=== PATIENT | female | born 1955 | race Caucasian/White ===

== ENCOUNTER 2019-05-24 13:26 | Observation (INO) | payer OTHER, SELFPAY ==
[2019-05-24] VITALS (11 sets, daily range): BP systolic 125–197; BP diastolic 61–95; PULSE 54–83; RESP 11–24; TEMP 36–36.3; O2SAT 93–98; BMI 32.8
--- NOTE | ~2019-05-24 | XR_ITS ---
EXAMINATION: XR chest 1V EXAM DATE: 05/24/2019 14:01 INDICATION: Dizziness. TECHNIQUE: Frontal and lateral projections of the chest obtained and reviewed. Comparison is made to prior examination from 11/27/2006. FINDINGS: Right lung granuloma. The lungs are otherwise clear. There are no pleural effusions. The cardiomediastinal silhouette is within normal limits. There is no pneumothorax suspected. The bone s and soft tissues are unremarkable. IMPRESSION: No acute cardiopulmonary findings. Reviewed, dictated and finalized at location A. INER HELPER
--- NOTE | ~2019-05-24 | US_ITS ---
EXAMINATION: US carotid duplex BI DATE: 05/25/2019 15:13 INDICATION: Cerebrovascular accident. TECHNIQUE: Grayscale, color Doppler, and pulsed Doppler images of the cervical carotid arteries were obtained. The degree of vessel stenosis is placed in one of the following categories: normal, <50%, 5 0-69%, >=70% but less than near-occlusion, near-occlusion, or total occlusion. Note that percent sten osis relative to normal distal artery lumen diameter is indirectly measured from velocity measurement s as described by Benito, et al. Radiology 2003; 229:340-346. COMPARISON: None. FINDINGS: RIGHT: The right common carotid artery (CCA) peak systolic velocity (PSV) is 95 cm/s. The right internal car otid artery (ICA) PSV is 119 cm/s. The right ICA end-diastolic velocity (EDV) is 24 cm/s. The right I CA/CCA PSV ratio is 1.3. Grayscale and color Doppler images yield an estimate of <50% diameter reduct ion from plaque in the ICA. There is antegrade flow in the right vertebral artery. LEFT: The left CCA PSV is 111 cm/s. The left ICA PSV is 230 cm/s. The left ICA EDV is 52 cm/s. The left ICA /CCA PSV ratio is 2.1. Grayscale and color Doppler images yield an estimate of <50% diameter reductio n from plaque in the ICA. There is antegrade flow in the left vertebral artery. IMPRESSION: 1. <50% stenosis in the right internal carotid artery. 2. <50% stenosis in the left internal carotid artery. Reviewed, dictated and finalized at location A. LESOFT DEVELOPER
--- NOTE | ~2019-05-24 | CT_ITS ---
EXAMINATION: CT brain wo con DATE: 05/24/2019 14:04 INDICATION: Dizziness. TECHNIQUE: Computed tomography (CT) of the head was performed without intravenous contrast. The mA wa s adjusted according to patient size. Iterative reconstruction technique was employed. The dose-lengt h product was 605.33 mGy-cm. COMPARISON: Head CT 10/24/2009 FINDINGS: There is an old lacunar infarct in right caudate nucleus. There are scattered areas of low attenuation in the cerebral white matter, which is within normal limits for the patient's age. There is an old infarct in posterior limb right internal capsule. There are likely changes of right ocular lens replacement surgery. 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 There is mild mucosal thickening in the paranasal sinuses. The mastoid air cells are normal. IMPRESSION: 1. 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 Reviewed, dictated and finalized at location A. ANOLOGY TEACHER
--- NOTE | ~2019-05-24 | CT_ITS ---
EXAMINATION: CTA brain DATE: 05/27/2019 15:12 INDICATION: Cerebrovascular accident. TECHNIQUE: Computed tomographic angiography (CTA) of the head was performed without and with 100 mL O mnipaque-350 intravenous contrast. Automated exposure control and iterative reconstruction technique were employed. The dose-length product was 994.54 mGy-cm. Maximum intensity projection 3D reconstruc tions were created. Volume-rendered 3D reconstructions of the intracranial arteries were created by rey sandy technologist on a separate workstation. COMPARISON: Head CT 05/24/2019 FINDINGS: There are old infarcts in the posterior limb right internal capsule and right caudate nucle us. There is no intracranial hemorrhage, acute infarction, or abnormal intracranial mass lesion. The ventricles are normal in size. The paranasal sinuses are clear. The mastoid air cells are normal. The re are likely changes of ocular lens replacement surgeries. Left ocular globe is small with dystrophi c calcifications. Right vertebral artery is dominant. There is no significant stenosis of basilar art eliana or the posterior cerebral arteries. There is no significant stenosis of the intracranial internal carotid arteries or anterior or middle cerebral arteries. Anterior communicating artery is normal. T here is no aneurysm. The posterior communicating arteries are normal. IMPRESSION: 1. Old infarcts involving right caudate nucleus and posterior limb right internal capsule. 2. No aneurysm or significant intracranial arterial stenosis. Reviewed, dictated and finalized at location A. BLER IMPRESSION: 1. Old infarcts involving right caudate nucleus and posterior limb right staff internist office based only al capsule. 2. No aneurysm or significant intracranial arterial stenosis.
--- NOTE | 2019-05-24 13:24 | ED.DIZZY ---
HPI - Dizziness General Chief Complaint: Dizziness Stated Complaint: dizziness Source: patient Mode of arrival: ambulatory Limitations: no limitations History of Present Illness HPI Narrative: A 63 y/o female pt presents to the ED, via EMS, with c/o intermittent dizziness that began Thursday night (3 days ago). Pt states she feels off balance, pulling to the right when walking but lying still alleviates her Sx. Pt denies any worsening of Sx with head movement and denies N/V, SOB, CP and numbness or tingling in extremities. MD elicited complaint: dizziness and difficulty walking (pulls to the right) Onset (ago): day(s) (3) Timing: intermittent Description: off-balance and other (dizziness) Relieving factors: lying down Associated symptoms: other (pulls to the right when walking) Related Data Allergies Allergy/AdvReac Type Severity Reaction Status Date / Time poison mustapha extract Allergy Mild Rash Verified 05/24/19 13:32 BURLAP Allergy Mild Rash Uncoded 05/24/19 13:32 Review of Systems Review of Systems: All systems reviewed & are unremarkable except as noted in HPI and below Cardiovascular: Cardiovascular: Denies chest pain Respiratory: Respiratory: Denies dyspnea Gastrointestinal: Gastrointestinal: Denies nausea and Denies vomiting Musculoskeletal: Musculoskeletal: Denies numbness and Denies tingling Neurologic: Reports abnormal gait (pulls to the right), Reports dizziness and Denies other (worsening of dizziness with head movement) [facility] Past Medical History Medical History (Updated 05/24/19 @ 17:27 by Espinoza Smith DO) Ankle fracture, right Diabetes mellitus Hiatal hernia Hypertension Left cataract Surgical History Surgical History (Updated 05/24/19 @ 16:07 by Rk HollidayActual Experience) History of left cataract extraction History of tonsillectomy History of tubal ligation Social History Social History Smoking status: Never smoker Alcohol intake: never Gender identity (if verbalized by the patient): Female Exam Narrative: Exam Narrative: APPEARANCE: No acute distress, nontoxic, resting in bed HEENT: Normocephalic, atraumatic, OMM, TMs clear bilaterally EYES: PERRL, EOMI NECK: Supple, nontender, full range of motion without pain, no meningismus RESPIRATORY: No respiratory distress, clear to auscultation bilaterally with no rhonchi wheezing or rales CARDIOVASCULAR: RRR s murmur ABDOMINAL: Soft, nontender, nondistended MUSCULOSKELETAL: Moves all extremities. No clubbing, cyanosis or edema. NEURO: A and O ?3, following commands, speech normal, cranial nerves II through XII grossly intact,muscle strength 5 out of 5 bilateral upper and lower extremities SKIN:: Warm, dry. Normal Color PSYCHIATRIC: Normal affect/mood Course Course Emergency Course: Patient had road test. Continues a list of the right. States it feels like she has been shift to the right Discussed with YESSI Chang presentation work-up. Agrees with admission at this time Discussed with patient and family results of workup and diagnosis. Discussed need for admission. Patient and family understand and agree to current treatment plan Consultations Consultation #1: Discussed case with Dr. Garrison, Neurologist. Agrees to consult and recommends administering Aspirin x 1. Date: 05/24/19 Time: 17:05 Vital Signs Vital signs: Vital Signs Temperature 97.4 F L 05/24/19 13:20 Pulse Rate 54 L 05/24/19 13:20 Respiratory Rate 12 05/24/19 13:20 Blood Pressure 185/61 H 05/24/19 13:20 Pulse Oximetry 96 05/24/19 13:20 Temperature 97.4 F L 05/24/19 13:20 Pulse Rate 56 L 05/24/19 16:31 Respiratory Rate 15 05/24/19 16:31 Blood Pressure 162/82 H 05/24/19 16:31 Pulse Oximetry 93 05/24/19 16:01 MDM - Dizziness Lab Data Result diagrams: 05/24/19 13:39 05/24/19 13:39 Labs: Lab Results 05/24/19 05/24/19 05/24/19 Range/Units 13:39
--- NOTE | 2019-05-24 13:26 | ECG_ITS ---
Measurements Intervals [place] Rate: 51 P: 28 FL: 138 QRS: 0 QRSD: 96 T: 45 QT: 440 QTc: 408 Interpretive Statements SINUS BRADYCARDIA BASELINE ARTIFACT- I, II, III, AVR BORDERLINE ECG Electronically Signed On 05-24-2019 14:39:04 [employer]ORER [employer] by Kyaw Joy D.O.
[2019-05-24] MEDS: MECLIZINE HCL 25 MG TABLET PO (13:33)
[2019-05-24 13:45] LABS: Basophils Absolute Auto 0.1 K/mm3 (0.0-0.1); Basophils Percent Auto 0.8 % (0.2-1.2); Eosinophils Absolute Auto 0.3 K/mm3 (0-0.3); Eosinophils Percent Auto 3.1 % (0-4.4); Hematocrit 40.4 % (37.0-47.0); Hemoglobin 13.5 g/dL (12.0-15.0); Immature Granulocyte Absolute 0.04 K/mm3 (0.00-0.031); Immature Granulocyte Percent A 0.4 % (0-0.5); Lymphocytes Absolute Auto 3.03 K/mm3 (0.9-3.2); Lymphocytes Percent Auto 28.1 % (18.3-44.2); Mean Corpuscular HGB Conc 33.4 g/dl (32-36); Mean Corpuscular Hemoglobin 29.6 pg (26-34); Mean Corpuscular Volume 88.6 fl (80-100); Mean Platelet Volume 9.6 fl (7.4-10.4); Monocytes Absolute Auto 0.7 K/mm3 (0.1-0.6); Monocytes Percent Auto 6.3 % (2.6-8.5); Neutrophils Absolute Auto 6.6 K/mm3 (1.3-6.7); Neutrophils Percent Auto 61.3 % (45.5-73.1); Platelet Count Result 325 k/mm3 (150-375); Red Blood Count 4.56 M/mm3 (4.2-5.4); Red Cell Distribution Width 12.2 % (11.5-14.5); White Blood Count 10.8 K/mm3 (4.5-10.0)
[2019-05-24 13:55] LABS: INR 1.2; Partial Thromboplastin Time 22.1 SECONDS (22.3-36.8); Prothrombin Time 14.6 Seconds (11.1-14.7)
[2019-05-24 14:12] LABS: Alanine Aminotransferase 22 U/L (4-35); Albumin Level 4.4 g/dL (3.5-5.1); Alkaline Phosphatase 82 U/L (38-126); Aspartate Amino Transferase 29 U/L (14-36); Bilirubin,Total 0.6 mg/dL (0.2-1.3); Blood Urea Nitrogen 12 mg/dL (7-17); Calcium 9.2 mg/dL (8.4-10.2); Carbon Dioxide 22 mmol/L (22-30); Chloride 100 mmol/L (98-107); Estimated CRCL calculation 96 ml/min; Estimated Glomerular Filt Rate > 60; Glucose 251 mg/dL (65-105); Potassium 4.2 mmol/L (3.4-5.0); Sodium 136 mmol/L (137-145)
[2019-05-24 14:14] LABS: Troponin I < 0.012 ng/mL (0.000-0.034)
[2019-05-24 14:56] LABS: Add Urine Microscopic? YES; Appearance Urine Clear (Clear); Bilirubin Urine Negative (Negative); Blood Urine Negative (Negative); Color Urine Yellow (Yellow); Glucose Urine UA Negative (Negative); Hyaline Casts Urine 15-19 /lpf; Ketones Urine Negative (Negative); Leukocyte Esterase Ur Trace LEU/UL (Negative); Mucus Urine Few /lpf; Nitrate Urine Negative (Negative); Protein Urine Negative (Negative); RBC Urine 0-2 /hpf (0-2); Specific Grav Ur 1.015 (1.001-1.035); Squamous Epithelial Cell Urine Occasional /hpf (Few); Urobilinogen Urine Negative mg/dL (<2.0); WBC Urine 0-3 /hpf
[2019-05-24] MEDS: ASPIRIN 81 MG CHEWABLE TABLET 324 MG PO (17:35)
[2019-05-24] MEDS: carvediloL 12.5 MG TABLET PO (18:24)
--- NOTE | 2019-05-24 18:57 | ADMGEN ---
This patient, Onelia Ramos, was admitted to Medical Room 253-01. Patient/family oriented to hospital policies and general routines including ID bracelet, bed and alarms, visiting hours, pain management, procedures, bathroom and other care routines, personal items, smoking policy, room service/diet, and visiting hours. Valuables list has been completed. Information on how to activate the Rapid Response Team has been discussed. Patient/Family are encouraged to report perceived risks to care and to ask questions if they do not understand what they are told or what they should do.
[2019-05-24 20:48] LABS: Troponin I < 0.012 ng/mL (0.000-0.034)
[2019-05-25] VITALS (9 sets, daily range): BP systolic 158–183; BP diastolic 68–71; PULSE 56–74; RESP 16–20; TEMP 36.3–36.6; O2SAT 90–99
[2019-05-25 00:08] LABS: Troponin I < 0.012 ng/mL (0.000-0.034)
[2019-05-25 05:29] LABS: Basophils Absolute Auto 0.1 K/mm3 (0.0-0.1); Basophils Percent Auto 0.6 % (0.2-1.2); Eosinophils Absolute Auto 0.3 K/mm3 (0-0.3); Eosinophils Percent Auto 2.5 % (0-4.4); Hematocrit 38.4 % (37.0-47.0); Hemoglobin 12.6 g/dL (12.0-15.0); Immature Granulocyte Absolute 0.04 K/mm3 (0.00-0.031); Immature Granulocyte Percent A 0.3 % (0-0.5); Lymphocytes Percent Auto 38.8 % (18.3-44.2); Mean Corpuscular HGB Conc 32.8 g/dl (32-36); Mean Corpuscular Hemoglobin 29.4 pg (26-34); Mean Corpuscular Volume 89.5 fl (80-100); Mean Platelet Volume 9.6 fl (7.4-10.4); Monocytes Absolute Auto 1.1 K/mm3 (0.1-0.6); Monocytes Percent Auto 8.8 % (2.6-8.5); Neutrophils Absolute Auto 5.9 K/mm3 (1.3-6.7); Platelet Count Result 292 k/mm3 (150-375); Red Blood Count 4.29 M/mm3 (4.2-5.4); Red Cell Distribution Width 12.3 % (11.5-14.5); White Blood Count 12.1 K/mm3 (4.5-10.0)
[2019-05-25 06:13] LABS: Blood Urea Nitrogen 19 mg/dL (7-17); Calcium 8.9 mg/dL (8.4-10.2); Carbon Dioxide 31 mmol/L (22-30); Chloride 99 mmol/L (98-107); Estimated CRCL calculation 70 ml/min; Estimated Glomerular Filt Rate > 60; Glucose 120 mg/dL (65-105); Potassium 3.8 mmol/L (3.4-5.0); Sodium 138 mmol/L (137-145)
--- NOTE | 2019-05-25 08:19 | ECHO_ITS ---
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 Summary 1. Left ventricular chamber dimension is normal. 2. Left ventricular systolic function is normal, estimated at 60-65%. 3. There is no increased left ventricular wall thickness. 4. Left ventricular septal wall motion is normal. 5. The left ventricular diastolic function is grade I diastolic dysfunction. 6. Left atrial chamber dimension is mildly enlarged. 7. There is mild aortic valve calcification. 8. There is mild mitral valve regurgitation. 9. There is mild tricuspid valve regurgitation. 10. There is mild pulmonic regurgitation. 11. Intact interatrial septum visualized by agitated saline imaging. Left Ventricle Left ventricular chamber dimension is normal. Left ventricular systolic function is normal, estimated at 60-65%. There is no increased left ventricular wall thickness. Left ventricular septal wall motion is normal. The left ventricular diastolic function is grade I diastolic dysfunction. Right Ventricle Right ventricular chamber dimension is normal. Right ventricular systolic function is normal. Left Atria Left atrial chamber dimension is mildly enlarged. Right Atria Right atrial chamber dimension is normal. Atrial Septum Intact interatrial septum visualized by agitated saline imaging. Aortic Valve The aortic valve is trileaflet. There is no aortic valve stenosis. There is trace aortic valve regurgitation. There is mild aortic valve calcification. Pulmonic Valve The pulmonic valve is normal. There is no pulmonic valve stenosis. There is mild pulmonic regurgitation. Mitral Valve The mitral valve has normal leaflets. There is no mitral valve stenosis. There is mild mitral valve regurgitation. Tricuspid Valve The tricuspid valve leaflets are normal. There is no significant tricuspid valve stenosis. There is mild tricuspid valve regurgitation. Pericardium/Pleural The pericardium appears normal. There is no pericardial effusion. Inferior Vena Cava Normal inferior vena cava with >50% collapse upon inspiration consistent with normal right atrial pressure, 5 mmHg. Aorta The aortic root size at the sinus of Valsalva is normal. Left Ventricular Outflow Tract Name Value Normal LVOT 2D LVOT Diameter 1.9 cm LVOT Doppler LVOT Peak Gradient 4 mmHg LVOT Mean Gradient 2 mmHg LVOT VTI 19 cm
[2019-05-25] MEDS: ASPIRIN 81 MG CHEWABLE TABLET 324 MG PO (08:46)
[2019-05-25 09:10] LABS: Glucose Point of Care 159 (65-105)
--- NOTE | 2019-05-25 11:50 | PCCCNOTE ---
On 05/25/19, the student, [Kim Clark ], provided care and completed [facility] documentation on this patient. I have reviewed the student's documentation and agree with the findings.
[2019-05-25 12:16] LABS: Glucose Point of Care 168 (65-105)
--- NOTE | 2019-05-25 15:14 | PCPTNOTE ---
The patient treatment was not able to be completed on 05/25/19 due to out of room at a test. Will attempted to perform therapy evaluation on 05/26/19.
--- NOTE | 2019-05-25 15:50 | CONS_ITS ---
DATE OF CONSULTATION: HISTORY OF PRESENT ILLNESS: This 63 years old right-handed female has been admitted to [facility] through the emergency room via EMS for the complaint of intermittent dizziness since Thursday of 3 days duration, described it as off-balance, pulling to the right when walking, but lying still alleviates her symptoms. Patient denied worsening of symptomatology with head movements and also gave no history of nausea, vomiting, shortness of breath, chest pain, numbness or tingling in the extremities. ALLERGIES: AT THE TIME OF ADMISSION TO THE HOSPITAL, PER THE DOCUMENTATION, SHE IS ALLERGIC TO POISON LILIAN EXTRACT, BURLAP. SHE HAS NO HISTORY OF ANY OTHER GENERAL SYMPTOMATOLOGY. PAST MEDICAL HISTORY: She has ongoing history of, in the past, diabetes mellitus, hiatal hernia, hypotension, history of right ankle fracture and history of left cataract extraction, in addition to tonsillectomy and tubal ligation. PHYSICAL EXAMINATION: GENERAL: Revealed her to be awake, alert, cooperative, in no obvious acute distress. HEENT: Head normocephalic with no cranial bruit. Ears, nose, throat examination normal. NECK: Supple with no cervical bruit. No thyromegaly. No lymphadenopathy. HEART: Regular with no murmur. LUNGS: Clear to auscultation. ABDOMEN: Soft with no organomegaly. NEUROLOGICAL: She was awake, alert, oriented x3. Speech not dysphasic, not dysarthric, not dysphonic. Pupils round, regular. Long of vision full. Extraocular movement full. Face symmetrical. Tongue midline. Motor examination revealed her to have no drift of 1 side or other side. Tone normal. Reflexes symmetrical. Plantars downgoing. LABORATORY DATA: Further investigation included a CBC with WBC 10.8, hemoglobin 13.5, platelets 325. Basic metabolic panel, sodium 136, potassium 4.2, chloride 100, CO2 of 22, BUN 12, creatinine 0.5, blood sugar 251. IMAGING: Chest x-ray negative. CT of the head documented the right caudate nucleus and posterior limb right internal capsule infarct. ASSESSMENT AND PLAN: The patient was advised that she should continue on aspirin 81 mg daily and carvedilol 12.5 mg twice a day along with the glimepiride 4 mg daily, ezetimibe 10 mg daily, and metformin 2000 mg daily. She will be followed in the office in 6 weeks. BOZENA ALVAREZ M.D. SUPPLIER MANAGER SUPPLIER MANAGER D I MT: Sabrina
--- NOTE | 2019-05-25 16:51 | PM.IMHP ---
H&P: HPI History of Present Illness Chief complaint: Gait instability suspect CVA Narrative: Onelia Ramos is a 63 year old female With his history of previous stroke diabetes and hypertension presented emergency department with a complaint feeling dizzy then see ambulates she drift to the right side and symptoms resolved when she is lying down however see does not any associated symptoms chest pain shortness of palpitation blurry vision fever or chills, currently patient is sitting in the chair states he did work with physical therapy and did not have any symptoms of drifting on the right CC denies any weakness in upper and lower extremities Review of Systems Review of Systems: All systems reviewed & are unremarkable except as noted in HPI and below PMFSH Past Medical History Medical History (Updated 05/25/19 @ 16:55 by Dante Tello MD) Ankle fracture, right Diabetes mellitus Hiatal hernia Hypertension Left cataract Surgical History Surgical History (Updated 05/24/19 @ 16:07 by Rk Naranjo [employer]) History of left cataract extraction History of tonsillectomy History of tubal ligation Family History Family History (Updated 05/24/19 @ 18:59 by Dawn Martínez RN) Mother Diabetes mellitus Hypertension Social History Social History Smoking status: Never smoker Alcohol intake: never Substance use: never Substance use type: does not use Gender identity (if verbalized by the patient): Female Spiritual care concerns: No Agree to blood products: Yes Meds Home Medications and Allergies Home Medications Medication Instructions Recorded Confirmed Type aspirin 81 mg PO HS 05/24/19 05/24/19 History carvedilol 12.5 mg PO BID 05/24/19 05/24/19 History ezetimibe 10 mg PO DAILY 05/24/19 05/24/19 History glimepiride 4 mg PO DAILY 05/24/19 05/24/19 History metformin 2,000 mg PO DAILY 05/24/19 05/24/19 History Allergies Allergy/AdvReac Type Severity Reaction Status Date / Time poison mustapha extract Allergy Mild Rash Verified 05/24/19 13:32 BURLAP Allergy Mild Rash Uncoded 05/24/19 13:32 Vital Signs Vital Signs - 24 hr 05/24/19 17:01 05/24/19 17:40 05/24/19 18:16 Temperature Pulse Rate 64 75 83 Respiratory Rate 11 L 24 H 16 Blood Pressure 184/68 H 197/95 H 176/89 H Pulse Oximetry 96 96 95 05/24/19 18:24 05/24/19 18:58 05/24/19 20:00 Temperature 96.8 F L Pulse Rate 78 67 69 Respiratory Rate 18 Blood Pressure 187/71 H Pulse Oximetry 98 05/24/19 22:00 05/25/19 00:00 05/25/19 04:00 Temperature 97.2 F L Pulse Rate 69 63 56 L Respiratory Rate 20 Blood Pressure 143/67 H Pulse Oximetry 94 05/25/19 06:00 05/25/19 08:00 05/25/19 12:00 Temperature 97.3 F L Pulse Rate 62 62 65 Respiratory Rate 18 18 Blood Pressure 158/69 H Pulse Oximetry 92 92 05/25/19 14:00 05/25/19 16:00 Temperature 97.4 F L Pulse Rate 74 67 Respiratory Rate 16 Blood Pressure 182/71 H Pulse Oximetry 99 Exam Narrative: Exam Narrative: Elderly moderately obese Const: General: comfortable and no acute distress HENMT: General nose exam: Normal nares present Mouth: Yes moist mucous membranes Eyes: General: appearance normal, both eyes and all related structures Sclera: sclerae normal Neck: Neck: supple Resp: Effort & Inspection: normal respiratory effort Auscultation: clear to auscultation bilaterally Cardio: Rate: regular rate Rhythm: regular rhythm GI: GI Palp: Yes Soft to palpation Skin: General skin exam: normal color and no rashes or lesions noted Neuro: Speech: normal speech Sensory Exam: normal sensation Other: Bilaterally upper and lower extremity power and strength 5/5 and symmetrical Extrem: General: normal to inspection Psych: Affect: Anxious affect present H&P: Results Labs Labs: Short CBC 05/24/19 05/25/19 Range/Units 13:39 04:59 WBC 10.8 H 12.1 H (4.5-1
[2019-05-25 17:44] LABS: Glucose Point of Care 155 (65-105)
[2019-05-25 21:28] LABS: Glucose Point of Care 249 (65-105)
[2019-05-26] VITALS (9 sets, daily range): BP systolic 149–178; BP diastolic 54–67; PULSE 60–82; RESP 16–20; TEMP 36.1–36.7; O2SAT 93–96
[2019-05-26 06:21] LABS: Hematocrit 38.9 % (37.0-47.0); Hemoglobin 13.1 g/dL (12.0-15.0); Mean Corpuscular HGB Conc 33.7 g/dl (32-36); Mean Corpuscular Hemoglobin 29.6 pg (26-34); Mean Platelet Volume 9.5 fl (7.4-10.4); Platelet Count Result 284 k/mm3 (150-375); Red Blood Count 4.42 M/mm3 (4.2-5.4); Red Cell Distribution Width 12.2 % (11.5-14.5); White Blood Count 9.1 K/mm3 (4.5-10.0)
[2019-05-26 06:32] LABS: Blood Urea Nitrogen 15 mg/dL (7-17); Carbon Dioxide 27 mmol/L (22-30); Chloride 97 mmol/L (98-107); Estimated CRCL calculation 81 ml/min; Estimated Glomerular Filt Rate > 60; Glucose 161 mg/dL (65-105); Potassium 3.5 mmol/L (3.4-5.0); Sodium 135 mmol/L (137-145)
[2019-05-26 07:48] LABS: Glucose Point of Care 163 (65-105)
[2019-05-26] MEDS: carvediloL 12.5 MG TABLET PO ×2 (08:37→16:54)
[2019-05-26] MEDS: EZETIMIBE 10 MG TABLET PO (08:37)
[2019-05-26] MEDS: GLIMEPIRIDE 2 MG TABLET 4 MG PO (08:37)
[2019-05-26] MEDS: ASPIRIN 81 MG CHEWABLE TABLET 324 MG PO (08:38)
[2019-05-26 09:35] LABS: Hematocrit 41.4 % (37.0-47.0); Hemoglobin 13.7 g/dL (12.0-15.0); Mean Corpuscular HGB Conc 33.1 g/dl (32-36); Mean Corpuscular Hemoglobin 29.5 pg (26-34); Mean Corpuscular Volume 89.2 fl (80-100); Mean Platelet Volume 9.7 fl (7.4-10.4); Platelet Count Result 309 k/mm3 (150-375); Red Blood Count 4.64 M/mm3 (4.2-5.4); Red Cell Distribution Width 12.2 % (11.5-14.5); White Blood Count 9.5 K/mm3 (4.5-10.0)
[2019-05-26] MEDS: metFORMIN HCL 500 MG TABLET 2000 MG PO ×2 (09:41)
[2019-05-26 09:48] LABS: Magnesium 1.5 mg/dL (1.6-2.3)
[2019-05-26 09:50] LABS: Albumin Level 4.5 g/dL (3.5-5.1); Alkaline Phosphatase 70 U/L (38-126); Aspartate Amino Transferase 41 U/L (14-36); Bilirubin,Total 0.6 mg/dL (0.2-1.3); Blood Urea Nitrogen 15 mg/dL (7-17); Carbon Dioxide 24 mmol/L (22-30); Chloride 95 mmol/L (98-107); Estimated CRCL calculation 95 ml/min; Estimated Glomerular Filt Rate > 60; Glucose 316 mg/dL (65-105); Sodium 136 mmol/L (137-145)
[2019-05-26 09:58] LABS: Alanine Aminotransferase 34 U/L (4-35)
--- NOTE | 2019-05-26 12:11 | PM.IMPN ---
Progress Note: A&P Assessment and Plan (1) Gait instability: Code(s): R26.81 - Unsteadiness on feet Status: Acute Assessment and Plan: 05/26/19 12:11Onelia Ramos is a 63 year old female With his history of previous stroke diabetes and hypertension presented emergency department with a complaint feeling dizzy then see ambulates she drift to the right side and symptoms resolved when she is lying down however see does not any associated symptoms chest pain shortness of palpitation blurry vision fever or chills, currently patient is sitting in the chair states he did work with physical therapy and did not have any symptoms of drifting on the right CC denies any weakness in upper and lower extremities, to further evaluate patient had a CT scan of the head which essentially negative and showed the patient had previous stroke, her carotid ultrasound as well cardiac echo essentially normal, patient seen by neurologist recommending continue present management with PT OT, will benefit from acute rehab, Today patien stats she did work with PT and still feels drifiting of right side and feels uneasy about ambulating, her [place] US, and cardiac echo are normal ct of head did not show any acute injury but has old infarct, unable to do MRI because of metal in her left eye, will continue to monitor, continue PT OT, will repeat CTA of head tomorrow to further evaluate and patient will be seen by neurologist. (2) Dizziness: Code(s): R42 - Dizziness and giddiness Status: Acute Assessment and Plan: Etiology uncertain plan is above (3) Hypertension: Code(s): I10 - Essential (primary) hypertension Status: Acute Assessment and Plan: Will continue home regimen and monitor (4) Diabetes mellitus: Code(s): E11.9 - Type 2 diabetes mellitus without complications Status: Acute Assessment and Plan: Will continue home regimen and monitor Subjective Date/time seen: 05/26/19 12:11Onelia Ramos is a 63 year old female With his history of previous stroke diabetes and hypertension presented emergency department with a complaint feeling dizzy then see ambulates she drift to the right side and symptoms resolved when she is lying down however see does not any associated symptoms chest pain shortness of palpitation blurry vision fever or chills, currently patient is sitting in the chair states he did work with physical therapy and did not have any symptoms of drifting on the right CC denies any weakness in upper and lower extremities, to further evaluate patient had a CT scan of the head which essentially negative and showed the patient had previous stroke, her carotid ultrasound as well cardiac echo essentially normal, patient seen by neurologist recommending continue present management with PT OT, will benefit from acute rehab, Today patien stats she did work with PT and still feels drifiting of right side and feels uneasy about ambulating, her [place] US, and cardiac echo are normal ct of head did not show any acute injury but has old infarct, unable to do MRI because of metal in her left eye, will continue to monitor, continue PT OT, will repeat CTA of head tomorrow to further evaluate and patient will be seen by neurologist. Review of Systems Review of Systems: All systems reviewed & are unremarkable except as noted in HPI and below Exam Narrative: Exam Narrative: Elderly moderately obese Const: General: comfortable and no acute distress HENMT: General nose exam: Normal nares present Mouth: Yes moist mucous membranes Eyes: General: appearance normal, both eyes and all related structures Sclera: sclerae normal Neck: Neck: supple Resp: Effort & Inspection: normal respiratory effort Auscultation: clear to auscultation bilaterally Cardio: Rate: regular rate Rhythm: regular rhythm Skin: General skin exam: normal color and no rashes or lesions noted Neuro: Speech: normal speech Sensory Exam:
[2019-05-26 12:12] LABS: Glucose Point of Care 239 (65-105)
[2019-05-26 17:22] LABS: Glucose Point of Care 156 (65-105)
[2019-05-26] MEDS: ASPIRIN 81 MG ENTERIC TABLET PO (20:53)
[2019-05-27] VITALS (9 sets, daily range): BP systolic 167–176; BP diastolic 56–71; PULSE 54–86; RESP 15–16; TEMP 35.9–36.9; O2SAT 96–98
[2019-05-27 06:06] LABS: Glucose Point of Care 153 (65-105)
--- NOTE | 2019-05-27 08:00 | PC.NURSE ---
Nystagmus noted to right eye.
[2019-05-27 08:28] LABS: Hematocrit 41.5 % (37.0-47.0); Mean Corpuscular HGB Conc 33.7 g/dl (32-36); Mean Corpuscular Hemoglobin 30.2 pg (26-34); Mean Corpuscular Volume 89.4 fl (80-100); Mean Platelet Volume 9.5 fl (7.4-10.4); Platelet Count Result 304 k/mm3 (150-375); Red Blood Count 4.64 M/mm3 (4.2-5.4); Red Cell Distribution Width 12.2 % (11.5-14.5); White Blood Count 10.1 K/mm3 (4.5-10.0)
[2019-05-27 08:41] LABS: Blood Urea Nitrogen 14 mg/dL (7-17); Calcium 9.5 mg/dL (8.4-10.2); Carbon Dioxide 26 mmol/L (22-30); Chloride 98 mmol/L (98-107); Estimated CRCL calculation 95 ml/min; Estimated Glomerular Filt Rate > 60; Glucose 166 mg/dL (65-105); Magnesium 1.7 mg/dL (1.6-2.3); Potassium 4.3 mmol/L (3.4-5.0); Sodium 138 mmol/L (137-145)
[2019-05-27 08:47] LABS: Glucose Point of Care 172 (65-105)
[2019-05-27] MEDS: GLIMEPIRIDE 2 MG TABLET 4 MG PO (08:57)
[2019-05-27] MEDS: EZETIMIBE 10 MG TABLET PO (08:57)
[2019-05-27] MEDS: carvediloL 12.5 MG TABLET PO ×2 (09:01→16:01)
[2019-05-27] MEDS: metFORMIN HCL 500 MG TABLET 2000 MG PO (09:20)
--- NOTE | 2019-05-27 12:00 | PC.NURSE ---
Nystagmus noted to right eye
--- NOTE | 2019-05-27 13:00 | PC.NURSE ---
Spoke with Dr. Garrison about nystagmus in right eye. He states he is aware of it.
--- NOTE | 2019-05-27 13:11 | WPDNEUROPN ---
Progress Note: A&P Assessment and Plan (1) Hypertension: Code(s): I10 - Essential (primary) hypertension Status: Acute (2) Diabetes mellitus: Code(s): E11.9 - Type 2 diabetes mellitus without complications Status: Acute (3) Gait instability: Code(s): R26.81 - Unsteadiness on feet Status: Acute (4) Dizziness: Code(s): R42 - Dizziness and giddiness Status: Acute Additional Plan question new stroke brainstem or cerebellar cannot have mri will get new ct scan Review of Systems Review of Systems: All systems reviewed & are unremarkable except as noted in HPI and below Constitutional: Constitutional: Reports no additional constitutional complaints Neurologic: Reports abnormal gait, Reports dizziness, Reports frequent falls, Reports lack of coordination and Reports focal weakness Exam HENMT: Head: normocephalic Ears: hearing grossly normal bilaterally Face and sinus: face symmetric Eyes: Visual Yanez: normal visual yanez by confrontation Pupils: Equal, round and reactive pupils present EOM: EOMs intact bilaterally Neck: Neck: full ROM Resp: Effort & Inspection: normal respiratory effort Auscultation: clear to auscultation bilaterally Cardio: Rate: regular rate Rhythm: regular rhythm Neuro: General: patient oriented x3 and gait normal (abnormal with tendency to go to right) Cranial nerves: Yes Equal, round and reactive pupils present, Yes Bilaterally intact EOM present, Yes Nystagmus not present, Yes Normal facial strength present, Yes Normal hearing present, Yes Ability to bilaterally rotate head present and Yes Ability to bilaterally elevate shoulders present Speech: normal speech Gait exam (Neuro): Staggering gait present and Wide-based gait present Psych: Appearance: grossly normal Objective Data Vital Signs Vital Signs: Vital Signs - 24 hr 05/26/19 14:00 05/26/19 16:00 05/26/19 20:00 Temperature 36.2 C L Pulse Rate 80 82 69 Respiratory Rate 16 Blood Pressure 149/58 H Pulse Oximetry 93 05/26/19 22:00 05/27/19 00:00 05/27/19 04:00 Temperature 36.7 C Pulse Rate 60 61 68 Respiratory Rate 16 Blood Pressure 167/54 H Pulse Oximetry 96 05/27/19 06:00 05/27/19 08:00 05/27/19 09:01 Temperature 35.9 C L Pulse Rate 54 L 74 76 Respiratory Rate 16 Blood Pressure 176/56 H Pulse Oximetry 96 05/27/19 12:00 Temperature Pulse Rate 86 Respiratory Rate Blood Pressure Pulse Oximetry Intake/Output Intake/Output: Intake & Output 05/24/19 05/25/19 05/26/19 05/27/19 23:59 23:59 23:59 23:59 Intake Total 240 1960 1430 440 Output Total 1400 800 600 Balance 240 560 630 -160 Meds/Results Medications: Active Medications Generic Name Dose Route Start Last Admin Trade Name Geronimo PRN Reason Stop Dose Admin Aspirin 81 mg 05/26/19 21:00 05/26/19 20:53 Aspirin Ec PO 81 mg HS THADDEUS Administration Carvedilol 12.5 mg 05/26/19 09:00 05/27/19 09:01 Coreg PO 12.5 mg BID THADDEUS Administration Ezetimibe 10 mg 05/26/19 09:00 05/27/19 08:57 Zetia PO 10 mg DAILY THADDEUS Administration Glimepiride 4 mg 05/26/19 08:00 05/27/19 08:57 Amaryl PO 4 mg DAILY@0800 THADDEUS Administration Metformin HCl 2,000 mg 05/26/19 08:00 05/26/19 09:41 Glucophage PO 2,000 mg Q24H THADDEUS Administration Radiology Results: ITS Impressions Chest X-Ray 05/24/19 14:03 IMPRESSION: No acute cardiopulmonary findings. Head CT 05/24/19 14:04 IMPRESSION: 1. 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 Carotid Doppler Study 05/25/19 15:16 IMPRESSION: 1. <50% stenosis in the right internal carotid artery. 2. <50% stenosis in the left internal carotid artery. Labs Labs: Laboratory Results - last 24 hr 05/26/19 05/26/19 05/27/19 16:41 20:56 08:22 WBC 10.1 H RBC 4.64 Hgb 14.0 Hct 41.5 MCV 89.4 MCH 30.2 MCHC 33.
--- NOTE | 2019-05-27 15:29 | PC.NURSE ---
Called CTA results to Dr. Garrison and Dr. Tello.
--- NOTE | 2019-05-27 15:44 | PM.DS ---
DS: Diagnosis Admitting Diagnosis Admitting Diagnosis: Unsteadiness on feet Discharge Diagnosis (1) Gait instability: Code(s): R26.81 - Unsteadiness on feet Status: Acute Assessment and Plan: 05/26/19 12:11Lajigar Ramos is a 63 year old female With his history of previous stroke diabetes and hypertension presented emergency department with a complaint feeling dizzy then see ambulates she drift to the right side and symptoms resolved when she is lying down however see does not any associated symptoms chest pain shortness of palpitation blurry vision fever or chills, currently patient is sitting in the chair states he did work with physical therapy and did not have any symptoms of drifting on the right CC denies any weakness in upper and lower extremities, to further evaluate patient had a CT scan of the head which essentially negative and showed the patient had previous stroke, her carotid ultrasound as well cardiac echo essentially normal, patient seen by neurologist recommending continue present management with PT OT, will benefit from acute rehab, Today patien stats she did work with PT and still feels drifiting of right side and feels uneasy about ambulating, her Crotid US, and cardiac echo are normal ct of head did not show any acute injury but has old infarct, unable to do MRI because of metal in her left eye, will continue to monitor, continue PT OT, will repeat CTA of head tomorrow to further evaluate and patient will be seen by neurologist. (2) Dizziness: Code(s): R42 - Dizziness and giddiness Status: Acute Assessment and Plan: Etiology uncertain plan is above (3) Hypertension: Code(s): I10 - Essential (primary) hypertension Status: Acute Assessment and Plan: Will continue home regimen and monitor (4) Diabetes mellitus: Code(s): E11.9 - Type 2 diabetes mellitus without complications Status: Acute Assessment and Plan: Will continue home regimen and monitor DS: Summary Hospital Course Reason for hospitalization: Onelia Ramos is a 63 year old female With his history of previous stroke diabetes and hypertension presented emergency department with a complaint feeling dizzy then see ambulates she drift to the right side and symptoms resolved when she is lying down however see does not any associated symptoms chest pain shortness of palpitation blurry vision fever or chills, currently patient is sitting in the chair states he did work with physical therapy and did not have any symptoms of drifting on the right she denies any weakness in upper and lower extremities Hospital Course: 05/26/19 12:11Onelia Ann Marie Ramos is a 63 year old female With his history of previous stroke diabetes and hypertension presented emergency department with a complaint feeling dizzy then see ambulates she drift to the right side and symptoms resolved when she is lying down however see does not any associated symptoms chest pain shortness of palpitation blurry vision fever or chills, currently patient is sitting in the chair states he did work with physical therapy and did not have any symptoms of drifting on the right CC denies any weakness in upper and lower extremities, to further evaluate patient had a CT scan of the head which essentially negative and showed the patient had previous stroke, her carotid ultrasound as well cardiac echo essentially normal, patient seen by neurologist recommending continue present management with PT OT, will benefit from acute rehab, Today patien stats she did work with PT and still feels drifiting of right side and feels uneasy about ambulating, her Crotid US, and cardiac echo are normal ct of head did not show any acute injury but has old infarct, unable to do MRI because of metal in her left eye, continuef to monitor, continuef PT OT, repeatedt CTA of head to further evaluate which was also normal and patient will be seen by neurologist. today patient stats feeling
== END 2019-05-27 17:10 | disposition home or self-care (01) ==
LOC: ANHED 17:27 → ANH2MED 05-25 12:00
PROVIDERS: Admitting Provider Internal Medicine; Emergency Provider Emergency Medicine; PCP Internal Medicine; Visit Provider Family Medicine
DX: R26.81 Unsteadiness on feet (principal); R42 Dizziness and giddiness; I10 Essential (primary) hypertension; E11.9 Type 2 diabetes mellitus without complications; Z79.82 Long term (current) use of aspirin; Z79.84 Long term (current) use of oral hypoglycemic drugs; Z79.899 Other long term (current) drug therapy; Z86.73 Personal history of transient ischemic attack (TIA), and cerebral infarction without residual deficits
CPT/HCPCS: 36415; 70450; 70496; 71045; 80048; 80053; 81001; 83735; 84484; 85025; 85027; 85610; 85730; 93005; 93880; 96375; 97110; 97116; 97161; 97165; 97535; 99285; A9270; C8929; G0378; G0379; Q9967

== ENCOUNTER → 2023-02-06 12:10 | Outpatient (CLI) | payer MEDICARE, SELFPAY ==
--- NOTE | ~2023-02-06 | DEXA_ITS ---
Bone Density Report Name: MARY GRACE SEALS Age: 67 Sex: Female Ethnicity: White Date of : 1955 Indication: postmenopausal; screening for osteoporosis; prior fracture; Referring Provider: Herminia, Saskia Study: Bone densitometry was performed. Exam Date: February 06, 2023 Accession number: [id number] Bone Density: Region BMD T-score Z-score Classification AP Spine (L1-L4) 1.045 0.0 1.9 Normal Femoral Neck (Left) 0.652 -1.8 -0.1 Osteopenia Total Hip (Left) 0.861 -0.7 0.7 Normal Femoral Neck (Right) 0.639 -1.9 -0.2 Osteopenia Total Hip (Right) 0.859 -0.7 0.7 Normal Total Hip Mean 0.860 -0.7 0.7 Normal World Health Organization criteria for BMD impression classify patients as: Normal (T-score at or above -1.0), Osteopenia (T-score between -1.0 and -2.5), or Osteoporosis (T-score at or below -2.5). 10-year Fracture Risk(1): Major Osteoporotic Fracture 16% Hip Fracture 2.2% Reported Risk Factors: [place] (), Neck BMD=0.639, BMI=34.9, previous fracture (1) FRAX(R) Version 3.08. Fracture probability calculated for an untreated patient. Fracture probability may be lower if the patient has received treatment. Clinical Information Provided by Patient: Has had a low trauma fracture Patient maximum height was 62 Menopause Age: 52 No regular weight bearing exercise Does not regularly consume dairy products Drinks caffeinated beverages Onset of m[age] at age 11.5 Number of children 1 Impression: The patient has low bone mass, based on the Right Femoral Neck T-score. The patient has an estimated ten-year risk of hip fracture of 2.2% and an estimated ten-year risk of major fracture of 16%, based on the WHO FRAX algorithm. The patient has risk factors, including: previous fracture. Discussion: BONE DENSITY IS LOW AT ONE OR MORE SKELETAL SITES. This patient's lowest T-score is low at one or more skeletal sites. It meets the World Health Organization's (WHO) criteria for ?low bone mass? (T-score between -1.0 and -2.5). The patient's 10-year risk of fracture as calculated by FRAX is less than the threshold where pharmacological therapy is recommended by the National Osteoporosis Foundation (NOF). However, all treatment decisions require clinical judgment and consideration of individual patient factors, including patient preferences, comorbidities, previous drug use, risk factors not captured in the FRAX model (e.g., frailty, falls, vitamin D deficiency, increased bone turnover, interval significant decline in bone density) and possible under or overestimation of fracture risk by FRAX. The patient should follow a healthful lifestyle (good nutrition with adequate calcium and vitamin D, and appropriate weight-bearing exercise). Follow-Up: Consider repeating this study in 2 to 3 years to reassess
== END ==
PROVIDERS: PCP Registered Nurse; Visit Provider Registered Nurse
DX: Z78.0 Asymptomatic menopausal state (principal); M85.852 Other specified disorders of bone density and structure, left thigh; M85.851 Other specified disorders of bone density and structure, right thigh
CPT/HCPCS: 77080

== ENCOUNTER 2023-02-15 18:41 | Emergency (ER) | payer MEDICARE, SELFPAY ==
--- NOTE | ~2023-02-15 | XR_ITS ---
EXAMINATION: XR chest 1V portable Exam Date/Time: 02/15/2023 19:20 CDT HISTORY: vomiting, unable to keep anything down Comparison: 05/24/2019. RESULT: Lines, tubes, and devices: None. Lungs and pleura: Senescent changes, otherwise clear. Granulomatous calcification. Cardiomediastinal silhouette: Stable. Other: No acute osseous or upper abdominal finding. IMPRESSION: No acute cardiopulmonary process. Reviewed, dictated and finalized at location K.
[2023-02-15 18:43] VITALS: BP 171/72; PULSE 89; RESP 17; TEMP 37.3; O2SAT 95
[2023-02-15 19:14] LABS: Alanine Aminotransferase 29 U/L (6-35); Albumin Level 4.3 g/dL (3.5-5.1); Alkaline Phosphatase 104 U/L (38-126); Anion Gap 9 mmol/L (8-16); Aspartate Amino Transferase 32 U/L (14-36); Bilirubin,Total 0.9 mg/dL (0.2-1.3); Blood Urea Nitrogen 15 mg/dL (7-17); Calcium 8.8 mg/dL (8.4-10.2); Carbon Dioxide 26 mmol/L (22-30); Chloride 97 mmol/L (98-107); Estimated CRCL calculation 92 ml/min; Estimated Glomerular Filt Rate > 60; Glucose 218 mg/dL (65-110); Lipase 61 U/L (23-300); Potassium 3.8 mmol/L (3.4-5.0); Sodium 132 mmol/L (137-145)
[2023-02-15 19:15] LABS: Basophils Absolute Auto 0.1 K/mm3 (0.0-0.1); Basophils Percent Auto 0.5 % (0.2-1.2); Eosinophils Absolute Auto 0.1 K/mm3 (0-0.3); Eosinophils Percent Auto 0.8 % (0-4.4); Hematocrit 43.7 % (37.0-47.0); Hemoglobin 14.5 g/dL (12.0-15.0); Immature Granulocyte Absolute 0.03 K/mm3 (0.00-0.031); Immature Granulocyte Percent A 0.3 % (0-0.5); Lymphocytes Absolute Auto 0.99 K/mm3 (0.9-3.2); Lymphocytes Percent Auto 9.7 % (18.3-44.2); Mean Corpuscular HGB Conc 33.2 g/dl (32-36); Mean Corpuscular Hemoglobin 29.9 pg (26-34); Mean Corpuscular Volume 90.1 fl (80-100); Mean Platelet Volume 9.8 fl (7.4-10.4); Monocytes Absolute Auto 0.8 K/mm3 (0.1-0.6); Monocytes Percent Auto 7.5 % (2.6-8.5); Neutrophils Absolute Auto 8.3 K/mm3 (1.3-6.7); Neutrophils Percent Auto 81.2 % (45.5-73.1); Platelet Count Result 247 k/mm3 (150-375); Red Blood Count 4.85 M/mm3 (4.2-5.4); Red Cell Distribution Width 11.9 % (11.5-14.5); White Blood Count 10.2 K/mm3 (4.5-10.0)
[2023-02-15] MEDS: SODIUM CHLORIDE 0.9% IV 1,000 ML 999 ML IV CONT (19:31)
[2023-02-15] MEDS: ONDANSETRON INJ 4 MG/2 ML VIAL IV PUSH (19:32)
[2023-02-15 19:44] VITALS: BP 155/69; PULSE 91; RESP 19; O2SAT 95
--- NOTE | 2023-02-15 20:33 | ED.GENADULT ---
HPI - General Adult General Chief complaint: Nausea/Vomiting/Diarrhea Stated complaint: vomiting Time Seen by Provider: 02/15/23 19:10 History of Present Illness HPI narrative: Patient presents to the emergency department with nausea and vomiting that started early in the morning. She states she is unable to keep anything down. Denies current nausea but vomits with any intake. Cannot tolerate water. Denies generalized abdominal pain. Thought she had food poisoning. States she has had similar symptoms intermittent in the past but nothing persistent. She is concerned because her symptoms did not improve at this time. Denies fevers chills. Denies sick contacts. Patient is very pleasant and her overall exam is benign. Abdominal exam negative for tenderness Related Data Home Medications Medication Instructions Recorded Confirmed ezetimibe 10 mg tablet 10 mg PO DAILY 05/24/19 12/10/20 fosinopril 10 mg tablet 10 mg PO DAILY 11/14/19 12/10/20 metformin 500 mg tablet 1,000 mg PO DAILY 11/14/19 12/10/20 Allergies Allergy/AdvReac Type Severity Reaction Status Date / Time poison mustapha extract Allergy Mild Rash Verified 02/15/23 18:47 mold Allergy Cough Verified 02/15/23 18:47 BURLAP Allergy Mild Rash Uncoded 11/18/21 16:00 Bounce fabric softener Allergy Hives Uncoded 11/18/21 16:00 Review of Systems Review of Systems: Review of systems negative except what is documented in the [facility] Past Medical History Medical History Ankle fracture, right Diabetes mellitus Hiatal hernia Hypertension Left cataract Surgical History Surgical History History of left cataract extraction History of tonsillectomy History of tubal ligation Family History Family History Mother Diabetes mellitus Hypertension Social History Social History Smoking status: Never smoker Alcohol intake: never Substance use: never Substance use type: does not use Gender identity (if verbalized by the patient): Female Spiritual care concerns: No Agree to blood products: Yes Exam Narrative: GENERAL: Well-appearing, well-nourished, and in no acute distress. HEAD: Normocephalic, atraumatic. EYES: PERRLA and EOMI. ENT: Nares clear, no rhinorrhea or epistaxis. Mucous membranes moist. NECK: Supple. CHEST: Clear to auscultation. No respiratory distress. HEART: Regular rate and rhythm. ABDOMEN: Soft, nontender, nondistended. EXTREMITIES: Normal range of motion. No edema. SKIN: Warm, dry, no rash. NEURO: No focal deficits. Alert and oriented x3. PSYCH: Normal mood and affect. Course Course Emergency Course: Differential diagnosis includes but not limited to viral gastroenteritis, food poisoning After IV Zofran patient able to tolerate water. She continues to deny abdominal pain. White blood cell count 10.2 hemoglobin normal Labs ordered and reviewed by myself creatinine also normal. Due to exam and labs will discharge without CAT scan and return precautions Vital Signs Vital signs: Vital Signs Temperature 37.3 C 02/15/23 18:43 Pulse Rate 89 02/15/23 18:43 Respiratory Rate 17 02/15/23 18:43 Blood Pressure 171/72 H 02/15/23 18:43 Pulse Oximetry 95 02/15/23 18:43 Oxygen Delivery Room Air 02/15/23 18:43 Temperature 37.3 C 02/15/23 18:43 Pulse Rate 91 02/15/23 19:44 Respiratory Rate 19 02/15/23 19:44 Blood Pressure 155/69 H 02/15/23 19:44 Pulse Oximetry 95 02/15/23 19:44 Oxygen Delivery Room Air 02/15/23 18:43 Medical Decision Making [facility] Narrative Medical decision making narrative: Plan for discharge but urinalysis still pending Vital Signs Vital Signs: Vital Signs Temperature 37.3 C 02/15/23 18:43 Pulse Rate 89 02/15/23 18:
[2023-02-15 20:56] VITALS: BP 147/67; PULSE 82; RESP 20; O2SAT 94
[2023-02-15 20:59] LABS: Appearance Urine Cloudy (Clear); Bacteria Urine 1+ /hpf; Bilirubin Urine Negative (Negative); Blood Urine Negative (Negative); Color Urine Yellow (Yellow); Glucose Urine UA 1+ mg/dL (Negative); Ketones Urine 1+ mg/dL (Negative); Leukocyte Esterase Ur 3+ LEU/UL (Negative); Nitrate Urine Negative (Negative); Non Pathogenic Casts 0-2; Protein Urine Negative (Negative); RBC Urine 0-2 /hpf (0-2); Squamous Epithelial Cell Urine Moderate /hpf (Few); Urobilinogen Urine 0.2 mg/dL (<2.0); WBC Urine 21-50 /hpf; pH Urine 5.5 (5.0-9.0)
[2023-02-15 21:02] LABS: Add Urine Microscopic? YES
[2023-02-15 22:02] VITALS: BP 144/68; PULSE 86; RESP 19; O2SAT 94
[2023-02-15] MEDS: CEPHALEXIN 500 MG CAPSULE PO (22:25)
[2023-02-15 22:30] VITALS: BP 142/78; PULSE 86; RESP 15; O2SAT 98
== END 2023-02-15 22:31 | disposition home or self-care (01) ==
PROVIDERS: Emergency Medicine; Emergency Provider Emergency Medicine; PCP Registered Nurse
DX: R11.10 Vomiting, unspecified (principal); R19.7 Diarrhea, unspecified; E11.9 Type 2 diabetes mellitus without complications; I10 Essential (primary) hypertension; Z79.899 Other long term (current) drug therapy
CPT/HCPCS: 36415; 71045; 80053; 81001; 83690; 85025; 87086; 87088; 96361; 96374; 99284; A9270; J2405; J7030